=== PATIENT | female | born 1960 | race Caucasian/White ===

== ENCOUNTER → 2016-07-22 | Outpatient (CLI) | payer BC ==
--- NOTE | 2016-07-22 14:25 | EKG ---
[facility] [place] Measurements Intervals [place] Rate: 75 P: 54 NC: 172 QRS: 15 QRSD: 90 T: 52 QT: 383 QTc: 412 Interpretive Statements SINUS RHYTHM No previous ECG available for comparison Electronically Signed On 07-22-16 20:02:08 [facility] by Cody Dunn [email or web address]
== END ==
LOC: EKG 14:30
PROVIDERS: ATTEND Physician Assistant Medical
DX: Z02.1 Encounter for pre-employment examination (principal)
CPT/HCPCS: 93005; 93010

== ENCOUNTER → 2016-07-27 | Outpatient (CLI) | payer BC ==
--- NOTE | 2016-07-28 08:58 | DI ---
Clinical History: Annual Screening Previous Exam: 2010 and 2009 Findings: CC and MLO views of both breasts are obtained, and demonstrate heterogeneously dense fibroglandular e lements. Computer aided diagnostics were applied. There is no mass, suspicious cluster of microcalcifications nor areas of architectural distortion. Impression: No mammographic evidence of malignancy. BIRADS: 2: Benign findings Recommendations: Annual screening. Note: Breast examination has been discussed and encouraged, and the patient informed to return if the re is any new palpable abnormality in the interval between screening. Overall imaging assessment: Benign findings.
== END ==
LOC: MAMMO 14:29
PROVIDERS: ATTEND Physician Assistant Medical
DX: Z12.31 Encounter for screening mammogram for malignant neoplasm of breast (principal)
CPT/HCPCS: G0202